=== PATIENT | male | born 1985 | race Hispanic/Latino ===

== ENCOUNTER 2019-04-17 19:20 | Emergency (ER) | payer OTHER ==
[~2019-04-17] VITALS: Ht 182.9 cm; Wt 90.0 kg
[~2019-04-17 19:20] MED LIST: NAPROSYN500 MG OR; NO HOME MEDS; TRAMADOL HCL50 MG OR
[2019-04-17 19:55] VITALS: BP 143/96
== END 2019-04-17 19:55 | disposition home or self-care (01) | DRG 563 ==
LOC: ED 19:20
DX: S86.912A Strain of unspecified muscle(s) and tendon(s) at lower leg level, left leg, initial encounter (principal); R22.42 Localized swelling, mass and lump, left lower limb

== ENCOUNTER 2020-06-21 01:48 | Emergency (ER) | payer OTHER ==
[~2020-06-21] VITALS: Ht 180.3 cm; Wt 90.9 kg
[2020-06-21 02:26] LABS: HEMOGLOBIN 13.6 g/dl (14.0-18.0); IMMATURE GRANULOCYTES 0.3 % (0.0-5.0); MEAN CORPUSCULAR HGB 26.3 pG CALC (26.0-32.0); MEAN CORPUSCULAR HGB CONC 31.6 g/dL CAL (32.0-36.0); NEUT# 4.88 thou/uL (1.82-7.42); RED BLOOD COUNT 5.18 mill/uL (4.70-6.10); RED CELL DISTRI WIDTH 15.2 % (11.5-15.5)
[2020-06-21 02:30] LABS: URINE BILIRUBIN - DIPSTICK NEGATIVE (NEGATIVE); URINE BLOOD DIPSTICK NEGATIVE (NEGATIVE); URINE COLOR YELLOW; URINE GLUCOSE - DIPSTICK NEGATIVE (NEGATIVE); URINE KETONE NEGATIVE (NEGATIVE); URINE LEUK ESTERASE NEGATIVE (NEGATIVE); URINE NITRITE - DIPSTICK NEGATIVE (Negative); URINE PROTEIN - DIPSTICK NEGATIVE (NEG-TRACE); URINE SPECIFIC GRAVITY <=1.005; URINE UROBILINOGEN - DIPSTICK 0.2 E.U./dL (0.2)
[2020-06-21 02:40] LABS: ALBUMIN 4.7 g/dL (3.2-5.0); ALKALINE PHOSPHATASE 78 u/l (38-126); ANION GAP 13 (6-22 (CALC)); BILIRUBIN, TOTAL 0.5 mg/dL (0.0-1.4); BUN 16 mg/dL (9-20); BUN/CREATININE RATIO 14 (12-20 (CALC)); CARBON DIOXIDE 24 mmol/l (22-30); CHLORIDE 105 mmol/l (95-108); CREATININE 1.1 mg/dL (0.7-1.3); GFR > 60 ML/MIN (>=60 (CALC)); GFR FOR AFR.AMER. > 60 ML/MIN (>=60 (CALC)); POTASSIUM 3.5 mmol/l (3.5-5.1); SGOT/AST 29 u/l (17-59); SODIUM 139 mmol/l (137-146); TOTAL PROTEIN 7.2 g/dL (6.3-8.2)
[2020-06-21 03:21] VITALS: BP 132/76
== END 2020-06-21 03:21 | disposition home or self-care (01) | DRG 880 ==
LOC: ED 01:48
PROVIDERS: Emergency Medicine
DX: F41.9 Anxiety disorder, unspecified (principal)

== ENCOUNTER 2021-07-23 08:49 | Emergency (ER) | payer OTHER ==
[~2021-07-23] VITALS: Ht 180.3 cm; Wt 85.0 kg
[2021-07-23] MEDS ORDERED: ALLEGRA ALLERGY60 MG PO (10:14)
[2021-07-23] MEDS ORDERED: SINGULAIR10 MG PO (10:14)
[2021-07-23] MEDS ORDERED: ALBUTEROL108 MCG/AC INHW/SPAC (10:14)
[2021-07-23 10:58] VITALS: BP 126/76
== END 2021-07-23 11:05 | disposition home or self-care (01) | DRG 313 ==
LOC: ED 08:49
DX: R07.89 Other chest pain (principal); Z20.822 Contact with and (suspected) exposure to COVID-19